=== PATIENT | male | born 1965 | race Caucasian/White ===

== ENCOUNTER 2023-02-20 01:04 | Emergency (ER) | payer OTHER ==
[~2023-02-20] VITALS: Ht 180.3 cm; Wt 83.9 kg
[2023-02-20] MEDS ORDERED: TETRACAINE HCL 0.5% OPHT DROP 2 ML BOTTLE ONE (01:14)
[2023-02-20] MEDS ORDERED: TETRACAINE HCL 0.5% OPHT DROP 2 ML BOTTLE OP ONE (01:15)
[2023-02-20] MEDS ORDERED: ERYTHROMYCIN 0.5% OPHT OINT 3.5 GM TUBE ONE (01:30)
[2023-02-20] MEDS ORDERED: ERYTHROMYCIN 0.5% OPHT OINT 3.5 GM TUBE OP ONE (01:30)
[2023-02-20 01:39] VITALS: BP 132/82; TEMP 98.5; O2SAT 99
== END 2023-02-20 01:39 | disposition home or self-care (01) ==
LOC: ER 01:06
DX: H16.8 Other keratitis (principal); F17.210 Nicotine dependence, cigarettes, uncomplicated
CPT/HCPCS: A4663

== ENCOUNTER 2023-10-20 16:05 | Emergency (ER) | payer OTHER ==
[~2023-10-20] VITALS: Ht 180.3 cm; Wt 83.9 kg
[2023-10-20] MEDS ORDERED: ALBU6.7H9 INH (17:08)
[2023-10-20] MEDS ORDERED: BUDE10.2 INH (17:08)
[2023-10-20] MEDS ORDERED: DOXY100T2 PO (17:08)
[2023-10-20] MEDS ORDERED: D-ME473S47 PO (17:08)
[2023-10-20 17:09] VITALS: BP 118/78; TEMP 97; O2SAT 100
== END 2023-10-20 17:11 | disposition home or self-care (01) ==
LOC: ER 16:21
DX: J44.9 Chronic obstructive pulmonary disease, unspecified (principal); J20.9 Acute bronchitis, unspecified; F17.210 Nicotine dependence, cigarettes, uncomplicated; Z79.2 Long term (current) use of antibiotics; Z79.899 Other long term (current) drug therapy
CPT/HCPCS: A4606; A4663